=== PATIENT | female | born 1985 | race Caucasian/White ===

== ENCOUNTER 2018-10-21 21:16 | Outpatient (CLI) | payer MEDICARE, OTHER ==
[2018-10-21 22:34] LABS: APPEARANCE,URINE SLIGHTLY-CLOUDY; BILIRUBIN,URINE NEGATIVE (NEGATIVE); COLOR,URINE YELLOW; GLUCOSE, URINE NEGATIVE (NEGATIVE); KETONES,URINE TRACE mg/dL (NEGATIVE); LEUKOCYTE ESTERASE,URINE NEGATIVE (NEGATIVE); NITRITE,URINE NEGATIVE (NEGATIVE); PROTEIN,URINE NEGATIVE (NEGATIVE); URINE SPECIFIC GRAVITY 1.003; UROBILINOGEN,URINE NEGATIVE mg/dL (<2.0)
[2018-10-21 22:36] LABS: URINE AMPHETAMINES SCREEN NEGATIVE; URINE BARBITURATES SCREEN NEGATIVE; URINE BENZODIAZEPINES SCREEN NEGATIVE; URINE COCAINE SCREEN NEGATIVE; URINE MARIJUANA (THC) SCREEN NEGATIVE; URINE METHADONE SCREEN NEGATIVE; URINE PHENCYCLIDINE SCREEN NEGATIVE
== END 2018-10-21 22:30 | disposition home or self-care (01) ==
LOC: LC 21:16
PROVIDERS: ATTEND Obstetrics & Gynecology
PROC: 4A1HXCZ Monitoring of Products of Conception, Cardiac Rate, External Approach (ICD-10-PCS; principal; 2018-10-21)
DX: O9A.212 Injury, poisoning and certain other consequences of external causes complicating pregnancy, second trimester (principal); Z3A.24 24 weeks gestation of pregnancy
CPT/HCPCS: 80307; 81001

== ENCOUNTER 2019-01-30 05:01 | Inpatient (IN) | payer MEDICARE, OTHER ==
[2019-01-29 11:55] LABS: APPEARANCE,URINE CLEAR; BILIRUBIN,URINE NEGATIVE (NEGATIVE); COLOR,URINE STRAW; GLUCOSE, URINE NEGATIVE (NEGATIVE); KETONES,URINE NEGATIVE (NEGATIVE); LEUKOCYTE ESTERASE,URINE NEGATIVE (NEGATIVE); NITRITE,URINE NEGATIVE (NEGATIVE); PROTEIN,URINE NEGATIVE (NEGATIVE); URINE SPECIFIC GRAVITY 1.005; UROBILINOGEN,URINE NEGATIVE mg/dL (<2.0)
[2019-01-29 11:58] LABS: ABSOLUTE LYMPHOCYTES (AUTO) 1.4 10^3/uL (0.5-4.7); ABSOLUTE MONOCYTES (AUTO) 0.4 10^3/uL (0.1-1.4); ABSOLUTE NEUT (AUTO) 7.7 10^3/uL (1.7-8.2); BASOPHILS % (AUTO) 0.1 % (0-2); EOSINOPHILS % (AUTO) 0.2 % (0-6); HEMATOCRIT 36.1 % (36.0-47.0); HEMOGLOBIN 12.4 g/dL (12.0-15.5); LYMPHOCYTES % (AUTO) 14.7 % (13-45); MEAN CORPUSCULAR HEMOGLOBIN 33.1 pg (27.0-33.4); MEAN CORPUSCULAR HGB CONC 34.4 g/dL (32.0-36.0); MEAN CORPUSCULAR VOLUME 96 fl (80-97); MONOCYTES % (AUTO) 4.3 % (3-13); PLATELET COUNT 214 10^3/uL (150-450); RED BLOOD COUNT 3.75 10^6/uL (3.72-5.28); SEGMENTED NEUTROPHILS % (AUTO) 80.7 % (42-78); TOTAL CELLS COUNTED % (AUTO) 100 %; WHITE BLOOD COUNT 9.5 10^3/uL (4.0-10.5)
[2019-01-29 13:07] LABS: URINE AMPHETAMINES SCREEN NEGATIVE; URINE BARBITURATES SCREEN NEGATIVE; URINE BENZODIAZEPINES SCREEN NEGATIVE; URINE COCAINE SCREEN NEGATIVE; URINE MARIJUANA (THC) SCREEN NEGATIVE; URINE METHADONE SCREEN NEGATIVE; URINE PHENCYCLIDINE SCREEN NEGATIVE
[~2019-01-30 05:01] MED LIST: AZITHROMYCIN 500 MG in DEXTROSE 5%-WATER 250 ML IV PRN; LACTATED RINGERS 1000 ML IV PRN; LIDOCAINE 0.5% INJ-PF (5 MG/ML) 50 ML SDV SUBCUT PRN; RINGERS SOLUTION,LACTATED 1,500 ML IV PRN
[2019-01-30] MEDS ORDERED: AZITHROMYCIN INJ 500 MG VIAL IV ONE (06:09)
[2019-01-30] MEDS ORDERED: OXYTOCIN 10 UNIT/ML VIAL ONE ×2 (07:04→07:05)
[2019-01-30] MEDS ORDERED: KETOROLAC TROMETHAMINE INJ/PF 30 MG/1 ML SDV ONE (07:04)
[2019-01-30] MEDS ORDERED: MIDAZOLAM 2 MG/2 ML INJ ONE (07:04)
[2019-01-30] MEDS ORDERED: EPHEDRINE SULFATE INJ 50 MG/1 ML AMPULE ONE (07:04)
[2019-01-30] MEDS ORDERED: FENTANYL CITRATE INJ/PF 100 MCG/2 ML AMPUL ONE (07:04)
[2019-01-30] MEDS ORDERED: ONDANSETRON HCL INJ/PF 4 MG/2 ML SDV ONE (07:05)
[2019-01-30] MEDS ORDERED: OXYTOCIN/NORMAL SALINE 20 UNIT/1,000 ML RTUINJ ONE (07:05)
[2019-01-30] MEDS ORDERED: PHENYLEPHRINE HCL INJ/PF 10 MG/1 ML SDV ONE (07:05)
[2019-01-30] MEDS ORDERED: ACETAMINOPHEN 1,000 MG/100 ML RTUPB IV ONE (07:05)
[2019-01-30] MEDS ORDERED: CLINDAMYCIN 900 MG/D5W RTU 900 MG/50 ML RTUPB IV ONE ×2 (07:49→13:00)
[2019-01-30] MEDS ORDERED: MORPHINE SULFATE 10 MG/ML INJ IV PRN (08:35)
[2019-01-30] MEDS ORDERED: DIPHENHYDRAMINE HCL 50 MG/ML VIAL IV PRN (08:35)
[2019-01-30] MEDS ORDERED: MEPERIDINE HCL/PF INJ 25 MG/1 ML DISP.SYRIN IV PRN (08:35)
[2019-01-30] MEDS ORDERED: FENTANYL CITRATE INJ/PF 100 MCG/2 ML AMPUL IV PRN ×3 (08:35)
[2019-01-30] MEDS ORDERED: PROMETHAZINE HCL INJ 25 MG/1 ML VIAL IV PRN ×3 (08:35→09:37)
[2019-01-30] MEDS ORDERED: OXYCODONE-ACETAMINOPHEN 5-325 MG TABLET PO PRN ×3 (08:35→09:37)
[2019-01-30] MEDS ORDERED: DIPH/PERTUSS(ACELL)/TETANUS VAC/PF 0.5 ML SYR (>=10YO) IM PRN (09:37)
[2019-01-30] MEDS ORDERED: MEASLES,MUMPS&RUBELLA VACC/PF 0.5 ML VIAL SUBCUT PRN (09:37)
[2019-01-30] MEDS ORDERED: HYDROMORPHONE HCL INJ/PF 2 MG/ML AMPULE IV PRN (09:37)
[2019-01-30] MEDS ORDERED: SIMETHICONE 80 MG TAB.CHEW PO PRN (09:37)
[2019-01-30] MEDS ORDERED: NORMAL SALINE 1000 ML 1,000 ML IV PRN (09:37)
[2019-01-30] MEDS ORDERED: ACETAMINOPHEN 325 MG TABLET PO PRN (09:37)
[2019-01-30] MEDS ORDERED: OXYTOCIN/NORMAL SALINE 20 UNIT/1,000 ML RTUINJ IV PRN (09:37)
[2019-01-30] MEDS ORDERED: MEPERIDINE HCL/PF INJ 25 MG/1 ML DISP.SYRIN ONE (09:48)
[2019-01-30] MEDS ORDERED: HYDROMORPHONE HCL INJ/PF 2 MG/ML AMPULE ONE (10:36)
--- NOTE | 2019-01-30 12:10 | Brief Operative Note ---
BRIEF OPERATIVE REPORT DATE OF SURGERY: 01/30/19 TIME OF SURGERY: 08:00 PREOPERATIVE DIAGNOSIS: Incontinentia Pigmenti (X linked), Gestational Hypertension, History of section, Undesires Fertility, , 39+1ega, Undesired Fertility. POSTOPERATIVE DIAGNOSIS: KARLA - delivered SURGEON: CHERYL ALICEA FINDINGS: normal uterus, normal bilateral tubes and ovaries, male infant delivered at 0823, weight 7#5oz, Apgars 9/9. IVF 1250ml, UOP 700ml. Approximately 2cm of fallopian tube removed from each fallopian tube for tubal ligation in [place] fashion. Exofin Tape for skin closure. COMPLICATIONS: None ESTIMATED BLOOD LOSS: 854ml TISSUE REMOVED OR ALTERED: placenta and cord (not sent), bilateral portions of fallopian tubes TECHNICAL PROCEDURE: Repeat Section with [place] BTL
[2019-01-30] MEDS: PRENATAL VITAMIN W DHA CAPSULE PO SCH (13:01)
[2019-01-30] MEDS: OXYCODONE-ACETAMINOPHEN 5-325 MG TABLET PO PRN ×3 (13:01→22:47)
[2019-01-30] MEDS: DOCUSATE SODIUM 100 MG CAPSULE PO SCH ×2 (13:13→18:34)
--- NOTE | 2019-01-30 20:29 | PDOC DELIVERY SUMMARY ---
Delivery Summary - Maternal Hx : IV Hx Para: I Hx # Term Pregnancies: 1 Hx # Pregnancies: 0 Hx Total # of Abortions (Sponateous & Elective): 2 Number of Living Children: 1 DANI: 02/05/19 Gestational Age: 39+1 Risk Factors: Previous Ruptured Membranes: AROM Time of Rupture: 08:23 Fluids: Clear Fluid Description: normal, clear - Delivery Labor: Not In Labor Presentation: Vertex Heart Rate Monitoring: Done Pre-Operatively Uterine Contraction Monitoring: External Pattern Other: CAT I Support Person Present: Yes Location: OR : Scheduled, Repeat Placenta: Within Normal Limits Placenta Description: normal Number of Vessels (Cord): 3 Nuchal Cord: No Delivery of Placenta Date: 01/30/19 Delivery of Placenta Time: 08:25 Estimated Blood Loss: 854 Delivery Quantitative Blood Loss (QBL): 854 - Medications Type of Anesthesia:: Spinal - Assess and Care Baby 1 Male Delivery of Infant Date: 01/30/19 Delivery of Time: 08:23 at 1 minute: 9 at 5 minutes: 9 Preprinted Number On Band: [id number] Infant Skin to Skin: No To Nursery At: 08:30 Mode of Transport: Bassinet Delivery Weight: 3,305 Delivery Length: 20.5 in - Delivery Personnel TREASURY AGENT: EILEEN BATEMAN Nursetoni RN: SAROJ MENDEZ RN: DANITZA RAGSDALE RN: OMAR TONY MD: CHERYL ALICEA
--- NOTE | 2019-01-30 21:17 | Operative Report ---
Operative Report DATE OF SURGERY: 01/30/19 PREOPERATIVE DIAGNOSIS: Incontinentia Pigmenti (X linked), Gestational Hyperten roly, History of section, Undesires Fertility, , 39+1ega, Undesired Fertility. POSTOPERATIVE DIAGNOSIS: KARLA - delivered OPERATION: Repeat Section with [facility] SURGEON: CHERYL ALICEA ANESTHESIA: Spinal TISSUE REMOVED OR ALTERED: placenta and cord (not sent), bilateral portions of fallopian tubes COMPLICATIONS: None ESTIMATED BLOOD LOSS: 854ml INTRAOPERATIVE FINDINGS: normal uterus, normal bilateral tubes and ovaries, male infant delivered at 0823, weight 7#5oz, Apgars 9/9. IVF 1250ml, UOP 700ml. Approximately 2cm of fallopian tube removed from each fallopian tube for tubal ligation in [place] fashion. Exofin Tape for skin closure. PROCEDURE: Anesthesia provider: [Idris GRANT, Rayna [place] CRNA] Urine output: [700ml] IV fluids: [1250ml] Indications: [33yo at 39+1ega presents for scheduled repeat section. She declines TOLAC. She is 100% sure that she has completed childbearing and desires Bilateral tubal sterilization. 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 She has gestational hypertension versus White coat syndrome with normal 24 hour UTP and labs. She desires repeat section and bilateral tubal ligation. THe risks, benefits, alternatives were reviewed and she desires to proceed with planned procedure. ] Procedure: The patient was taken to the operating room where spinal anesthesia was obtained and found to be adequate. She was then prepped and draped in the normal sterile fashion and placed in the dorsal supine position with a leftward tilt. A Pfannenstiel skin incision was then made and carried through to the underlying layers of the fascia with the scalpel. The fascia was incised in the midline and the incision extended laterally with the Gomez scissors. The superior aspect of the fascial incision was then grasped with Fransisco clamps elevated and the underlying rectus muscles dissected off [bluntly]. Attention was then turned to the inferior aspect of the fascial incision which in a similar fashion was grasped, tented up with Fransisco clamps, and the rectus muscles dissected off [bluntly]. The rectus muscles were then in the midline and the peritoneum at the amount identified and entered [bluntly]. The peritoneal incision was then extended superiorly and inferiorly with good visualization of the bladder. The bladder blade was inserted and the vesicouterine peritoneum identified grasped with Slovak pickups and entered sharply with the Metzenbaum scissors. This incision was then extended laterally with the Metzenbaum scissors and a bladder flap created digitally. The bladder blade was then reinserted and the lower uterine segment incised in a transverse fashion with the scalpel. The uterine incision was then extended bluntly. The bladder blade was removed and the 's head was delivered from cephalic presentation atraumatically. The nose and mouth were suctioned and the cord doubly clamped and cut. And the was handed off to waiting pediatricians. The placenta was then delivered spontaneously and the uterus exteriorized and cleared of all clots and debris. The uterine incision was then repaired with 1- 0 Vicryl in a running locked fashion. A second layer of the same suture was used to obtain hemostasis via imbrication of the initial layer. The bladder flap was then repaired with 3-0 chromic in a running fashion. The left fallopian tube was identified and followed out to the fimbriated end and then mid ampullary portion was grasped and a window was made in the mesosalpinx and the proximal end was suture ligated times two and the distal end was suture ligated times two and the intervening portion was excised. This procedure was repeated on the patients right fallopian tube which then complete [place] tubal ligation. The uterus was returned to the patient's abdomen and Interceed was placed overlying the uterine incision to prevent adhesions and surgicel was placed for hemostasis control. The gutters were cleared of all clots and debris. All operative sites were noted to be hemostatic. The fascia was reapproximated with 0 Vicryl in a running fashion from each lateral edge to the midline. The skin was closed with 3-0 Monocryl in a running subcuticular fashion with overlying Exofin tape for additional dressing as well as wound closure. The patient tolerated the procedure well. Sponge lap needle and instrument counts are correct times 2. 500mg of Zithromax and Clindamycin 900mg were given prior to skin incision. The patient was taken to the recovery area awake and in stable condition.
[2019-01-31 06:56] LABS: HEMATOCRIT 29.6 % (36.0-47.0); MEAN CORPUSCULAR HGB CONC 34.4 g/dL (32.0-36.0); MEAN CORPUSCULAR VOLUME 96 fl (80-97); PLATELET COUNT 197 10^3/uL (150-450); RED BLOOD COUNT 3.08 10^6/uL (3.72-5.28); RED CELL DISTRIBUTION WIDTH 13.1 % (11.5-14.0); WHITE BLOOD COUNT 18.7 10^3/uL (4.0-10.5)
[2019-01-31 07:18] LABS: HEMOGLOBIN 10.2 g/dL (12.0-15.5)
--- NOTE | 2019-01-31 09:22 | PDOC PROGRESS REPORT ---
Subjective-OB Progress Note for:: 01/31/19 Physical Exam (OB) Vital Signs: Temp Pulse Resp BP Pulse Ox 98.3 F 77 18 107/67 99 01/31/19 07:17 01/31/19 07:17 01/31/19 07:17 01/31/19 07:17 01/31/19 07:17 Intake & Output 01/30/19 01/31/19 02/01/19 06:59 06:59 06:59 Intake Total 700 Output Total 2500 Balance -1800 Weight 72.121 kg - PIH/Pre-Eclampsia DTR's: 1 + Clonus: Negative Headache: Absent Epigastric Pain: No Visual Changes: No - Dressing Removed: Yes - dermabond Incision: Well Approximated Closure Type: Surgical Glue - Lochia Lochia Amount: Scant < 10 ml Lochia Color: Rubra/Red - Abdomen Description: Soft Hernia Present: No Bowel Sounds: Normoactive Flatus Presence: Absent Stool: No Fundal Description: Firm, Midline Fundal Height: u/u - u/2 Objective-Diagnostic Laboratory: 01/31/19 06:29 01/31/19 06:29 WBC 18.7 H RBC 3.08 L Hgb 10.2 L D Hct 29.6 L MCV 96 MCH 33.0 MCHC 34.4 RDW 13.1 Plt Count 197
[2019-01-31] MEDS: DOCUSATE SODIUM 100 MG CAPSULE PO SCH ×2 (09:41→17:47)
[2019-01-31] MEDS: PRENATAL VITAMIN W DHA CAPSULE PO SCH (09:41)
[2019-01-31] MEDS: OXYCODONE-ACETAMINOPHEN 5-325 MG TABLET PO PRN ×2 (11:32→17:46)
[2019-02-01 06:34] LABS: HEMATOCRIT 27.7 % (36.0-47.0); HEMOGLOBIN 9.5 g/dL (12.0-15.5); MEAN CORPUSCULAR HEMOGLOBIN 33.1 pg (27.0-33.4); MEAN CORPUSCULAR HGB CONC 34.3 g/dL (32.0-36.0); MEAN CORPUSCULAR VOLUME 97 fl (80-97); PLATELET COUNT 195 10^3/uL (150-450); RED BLOOD COUNT 2.87 10^6/uL (3.72-5.28); RED CELL DISTRIBUTION WIDTH 13.3 % (11.5-14.0); WHITE BLOOD COUNT 15.6 10^3/uL (4.0-10.5)
[2019-02-01] MEDS: PRENATAL VITAMIN W DHA CAPSULE PO SCH (09:29)
[2019-02-01] MEDS: DOCUSATE SODIUM 100 MG CAPSULE PO SCH (09:29)
--- NOTE | 2019-02-01 09:38 | PDOC PROGRESS REPORT ---
Subjective-OB Progress Note for:: 02/01/19 Subjective: Doing well, noc/o, passing gas, family at [facility], has appt in office Physical Exam (OB) Vital Signs: Temp Pulse Resp BP Pulse Ox 98.7 F 91 16 131/82 H 100 02/01/19 07:21 02/01/19 07:21 02/01/19 07:21 02/01/19 07:21 02/01/19 07:21 Intake & Output 01/31/19 02/01/19 02/02/19 06:59 06:59 06:59 Intake Total 700 500 Output Total 2500 Balance -1800 500 - PIH/Pre-Eclampsia DTR's: 1 + Clonus: Negative Headache: Absent Epigastric Pain: No Visual Changes: No - Dressing Removed: No Incision: Well Approximated Closure Type: Surgical Glue - Lochia Lochia Amount: Scant < 10 ml Lochia Color: Rubra/Red - Abdomen Description: Soft Hernia Present: No Fundal Description: Firm, Midline Fundal Height: u/u - u/2 Objective-Diagnostic Laboratory: 02/01/19 06:15 02/01/19 06:15 WBC 15.6 H RBC 2.87 L Hgb 9.5 L Hct 27.7 L MCV 97 MCH 33.1 MCHC 34.3 RDW 13.3 Plt Count 195 Assessment and Plan(PN) - Assessment and Plan (1) Acute blood loss anemia Is this a current diagnosis for this admission?: Yes (2) Uterine atony Is this a current diagnosis for this admission?: Yes (3) hemorrhage, delivered Is this a current diagnosis for this admission?: Yes (4) Incontinentia pigmenti Is this a current diagnosis for this admission?: Yes (5) Encounter for sterilization Is this a current diagnosis for this admission?: Yes (6) Status post repeat low transverse section Is this a current diagnosis for this admission?: Yes - Time Spent with Patient Time with patient: Less than 15 minutes Medications reviewed and adjusted accordingly: Yes - Disposition Anticipated Discharge: Home Within: within 24 hours
--- NOTE | 2019-02-01 09:43 | PDOC DISCHARGE SUMMARY ---
Final Diagnosis Discharge Date: 02/01/19 - Final Diagnosis (1) Acute blood loss anemia Is this a current diagnosis for this admission?: Yes (2) Uterine atony Is this a current diagnosis for this admission?: Yes (3) hemorrhage, delivered Is this a current diagnosis for this admission?: Yes (4) Incontinentia pigmenti Is this a current diagnosis for this admission?: Yes (5) Encounter for sterilization Is this a current diagnosis for this admission?: Yes (6) Status post repeat low transverse section Is this a current diagnosis for this admission?: Yes Discharge Data - Discharge Medication Prescriptions: Oxycodone HCl/Acetaminophen [Percocet 5-325 mg Tablet] 1 tab PO Q4HP PRN #20 tablet PRN Reason: Home Medications: Prenat 115/Iron Fum/Folic/Dss [ 19 Tablet] 1 tab PO DAILY 10/21/18 Oxycodone HCl/Acetaminophen [Percocet 5-325 mg Tablet] 1 tab PO Q4HP PRN #20 tablet 02/01/19 Gestational Age: 39.1 Reason(s) for Admission: Ceasarean Section-Repeat, Tubal Ligation, Gestional Diabetes Procedures: NST, Ultrasound Intrapartum Procedure(s): : Low Cervical, Transverse, Tubal Ligation - [place] Data Baby 1 Male Home with Mother: Yes Complications: No - Diagnosis Test Laboratory: Temp Pulse Resp BP Pulse Ox 98.7 F 91 16 131/82 H 100 02/01/19 07:21 02/01/19 07:21 02/01/19 07:21 02/01/19 07:21 02/01/19 07:21 01/29/19 01/29/19 01/31/19 10:41 10:53 06:29 RBC 3.75 3.08 L Hgb 12.4 10.2 L D Hct 36.1 29.6 L Urine Opiates Screen NEGATIVE 02/01/19 06:15 RBC 2.87 L Hgb 9.5 L Hct 27.7 L Urine Opiates Screen - Discharge information/Instructions Discharge Activity: Balance Activity w/Rest, No Lifting Over 10 Pounds, No Lifting/Push/Pulling, Pelvic Rest Discharge Diet: As Tolerated, Regular Disposition: HOME, SELF-CARE Follow [facility]: [facility]: 5, Days
[2019-02-01 10:12] VITALS: BP 119/77
[2019-02-01] MEDS: OXYCODONE-ACETAMINOPHEN 5-325 MG TABLET PO PRN (12:03)
== END 2019-02-01 14:02 | disposition home or self-care (01) | DRG 784 ==
LOC: 2N 05:01
PROVIDERS: ADMIT Student in an Organized Health Care Education/Training Program; ATTEND Student in an Organized Health Care Education/Training Program
PROC: 0UB70ZZ Excision of Bilateral Fallopian Tubes, Open Approach (ICD-10-PCS; 2019-01-30)
PROC: 10D00Z1 Extraction of Products of Conception, Low, Open Approach (ICD-10-PCS; principal; 2019-01-30 07:45)
DX: O13.4 Gestational [pregnancy-induced] hypertension without significant proteinuria, complicating childbirth (principal); D62 Acute posthemorrhagic anemia; O90.81 Anemia of the puerperium; O72.1 Other immediate postpartum hemorrhage; Z30.2 Encounter for sterilization; Q82.3 Incontinentia pigmenti; Z37.0 Single live birth; Z79.899 Other long term (current) drug therapy
CPT/HCPCS: 1961; 36415; 80307; 81001; 85025; 85027; 86850; 86900; 86901; 88302; 94799; C1765; J0131; J0456; J1170; J1885; J2175; J2250; J2370; J2405; J2590; J3010; J3490; J7060; J7120